=== PATIENT | female | born 1985 | race Caucasian/White ===

== ENCOUNTER 2018-09-25 12:44 | Emergency (ER) | payer SELFPAY ==
[~2018-09-25] VITALS: Ht 162.6 cm; Wt 95.0 kg
[2018-09-25 12:54] VITALS: BP 128/73
== END 2018-09-25 18:45 | disposition left against medical advice (07) ==
LOC: ER 12:44
DX: R10.84 Generalized abdominal pain (principal); Z53.21 Procedure and treatment not carried out due to patient leaving prior to being seen by health care provider